=== PATIENT | female | born 1955 | race Caucasian/White ===

== ENCOUNTER 2023-05-15 14:07 | Emergency (ER) | payer MEDICARE, BC ==
[~2023-05-15] VITALS: Ht 160 cm; Wt 68.2 kg
[~2023-05-15 14:07] MED LIST: OXYC-150 PO
[2023-05-15] MEDS ORDERED: LIDOcaine 1% 30ml preserv. free vial IJ STA (16:13)
[2023-05-15] MEDS ORDERED: TETanus/Pertussis (Acell)/Diphther VAC/PF (Tdap-Adult) 0.5ml syringe IMVAC ONE (16:35)
[2023-05-15] MEDS ORDERED: NAPR-56 PO (16:41)
[2023-05-15] MEDS ORDERED: CEPH-585 PO (16:41)
[2023-05-15 17:22] VITALS: BP 177/93; PULSE 69; RESP 16; TEMP 98.4; O2SAT 98
--- NOTE | 2023-05-15 19:43 | NUR ---
Pt. documentation completed by FOOD PRODUCTION ASSOCIATE reviewed and concur with FOOD PRODUCTION ASSOCIATE.
== END 2023-05-15 17:24 | disposition home or self-care (01) ==
LOC: ER 14:07
DX: S61.211A Laceration without foreign body of left index finger without damage to nail, initial encounter (principal); X58.XXXA Exposure to other specified factors, initial encounter; Y93.89 Activity, other specified; Y92.89 Other specified places as the place of occurrence of the external cause; Y99.8 Other external cause status
CPT/HCPCS: 12001; 90715; 99283